=== PATIENT | female | born 1990 | race African-American/Black ===

== ENCOUNTER 2016-12-24 08:54 | Emergency (ER) | payer OTHER ==
[2016-12-24 09:05] VITALS: BP 130/85; PULSE 89; TEMP 98.5; BMI 26.2
[2016-12-24] MEDS ORDERED: FAMOTIDINE 20 MG/50 ML IVPB 50 ML IVPB ONE ×2 (10:07→10:21)
[2016-12-24] MEDS ORDERED: ONDANSETRON 4 MG/2 ML VIAL IVPB ONE (10:07)
[2016-12-24] MEDS ORDERED: SODIUM CHLORIDE 1,000 ML IV STA (10:07)
[2016-12-24] MEDS ORDERED: ONDANSETRON 4 MG/2 ML VIAL ONE (10:12)
--- NOTE | 2016-12-24 10:14 | PDOC ---
History of Present Illness - General Chief Complaint: Pain, Acute Stated Complaint: ABD PAIN, NAUSEA Time Seen by Provider: 12/24/16 09:47 History Source: Patient Exam Limitations: No Limitations - History of Present Illness Travel History: No Initial Comments: 12/24/16 10:12 26 yr female no medical history or allergies woke up in the [employer] with stomach cramps and diarrhea. Last meal was a restaurant dinner rice, chicken and beans. no other family ate the same meal, no other sick contacts, no recent foreign travel. Pt denies vomiting has nausea. no fever or chills. Past History - Past Medical History Allergies/Adverse Reactions: Allergies Allergy/AdvReac Type Severity Reaction Status Date / Time No Known Allergies Allergy Verified 12/24/16 09:02 Home Medications: Ambulatory Orders Famotidine [Pepcid -] 20 mg PO DAILY #7 tablet 12/24/16 Ondansetron [Zofran Odt -] 4 mg SL TID PRN #12 od.tablet 12/24/16 Other medical history: DENIES - Immunization History Immunization Up to Date: Yes - Psycho/Social/Smoking Cessation Hx Suicidal Ideation: No Smoking History: Never smoked Information on smoking cessation initiated: No Hx Alcohol Use: No Drug/Substance Use Hx: No Substance Use Type: None *Physical Exam - Vital Signs Last Vital Signs Temp Pulse Resp BP Pulse Ox 98.5 F 89 14 130/85 100 12/24/16 09:02 12/24/16 09:02 12/24/16 09:02 12/24/16 09:02 12/24/16 09:02 - Physical Exam General Appearance: Yes: Nourished, Appropriately Dressed HEENT: positive: EOMI, RED, Normal ENT Inspection, TMs Normal, Pharynx Normal Neck: positive: Supple Respiratory/Chest: positive: Lungs Clear, Normal Breath Sounds Cardiovascular: positive: Regular Rhythm, Regular Rate Gastrointestinal/Abdominal: positive: Normal Bowel Sounds, Soft, Increased Bowel Sounds. negative: Rebound, Tenderness Musculoskeletal: positive: Normal Inspection Extremity: positive: Normal Capillary Refill, Normal Inspection, Normal Range of Motion Integumentary: positive: Normal Color, Dry, Warm Neurologic: positive: Fully Oriented, Alert, Normal Mood/Affect, Normal Response , Motor Strength 5/5 ED Treatment Course - LABORATORY CBC & Chemistry Diagram: 12/24/16 10:10 12/24/16 10:07 Medical Decision Making - Medical Decision Making 12/24/16 11:49 cc: stomach cramps, diarrhea started at 4am nausea no vomiting, no fever or chills will check labs, hydrate meds for nausea pt feels better after fluids no diarrhea while in ED labs reviewed will dc home with BRAT diet and rest, supportive cares. *DC/Admit/Observation/Transfer Diagnosis at time of Disposition: Gastroenteritis and colitis, viral - Discharge Dispostion Disposition: HOME Condition at time of disposition: Good - Prescriptions Prescriptions: Famotidine [Pepcid -] 20 mg PO DAILY #7 tablet Ondansetron [Zofran Odt -] 4 mg SL TID PRN #12 od.tablet PRN Reason: Nausea - Patient Instructions Additional Instructions: drink pleanty of fluids clear fluids rice, bannanas, toast if any fever, chills bloody diarrhea return to ER if the symptoms last more than 3-4 days return to ER or follow with your doctor
[2016-12-24 10:29] LABS: MCH 27.6 pg (25.7-33.7); MCHC 32.6 g/dl (32.0-36.0); MEAN CELL VOLUME 84.5 fl (80-96); MEAN PLT VOLUME 7.7 fl (7.5-11.1); PLATELET COUNT 295 K/MM3 (134-434); RDW 13.6 % (11.6-15.6); WHITE BLOOD COUNT 18.2 K/mm3 (4.0-10.0)
[2016-12-24 10:36] LABS: URINE APPEARANCE CLEAR; URINE BILIRUBIN NEGATIVE (NEGATIVE); URINE BLOOD NEGATIVE (NEGATIVE); URINE COLOR LTYELLOW; URINE GLUCOSE (UA) NEGATIVE (NEGATIVE); URINE KETONE NEGATIVE (NEGATIVE); URINE LEUK ESTERASE NEGATIVE (NEGATIVE); URINE NITRITE NEGATIVE (NEGATIVE); URINE PROTEIN NEGATIVE (NEGATIVE); URINE UROBILINOGEN NEGATIVE mg/dL (0.2-1.0)
[2016-12-24 10:47] LABS: ALBUMIN 4.1 g/dl (3.4-5.0); ALK PHOS 67 U/L (45-117); AMYLASE 53 U/L (25-115); ANION GAP 8 (8-16); BILIRUBIN,TOTAL 0.3 mg/dL (0.2-1.0); CALCIUM 9.2 mg/dL (8.5-10.1); CO2 22 mmol/L (21-32); CREATININE 0.5 mg/dL (0.55-1.02); GLUCOSE,RANDOM 101 mg/dL (74-106); SGOT/AST 14 U/L (15-37); SGPT/ALT 18 U/L (12-78); TOT PROT 7.8 g/dl (6.4-8.2)
== END 2016-12-24 12:08 | disposition home or self-care (01) ==
LOC: JERFT 08:54
PROC: 3E033GC Introduction of Other Therapeutic Substance into Peripheral Vein, Percutaneous Approach (ICD-10-PCS; principal; 2016-12-24)
DX: A08.4 Viral intestinal infection, unspecified (principal); B97.89 Other viral agents as the cause of diseases classified elsewhere
CPT/HCPCS: 36415; 80053; 81003; 82150; 83690; 84703; 85027; 87086; 99281-25